=== PATIENT | female | born 1960 | race Caucasian/White ===

== ENCOUNTER 2020-09-27 09:30 | Outpatient (CLI) | payer BC, SELFPAY ==
--- NOTE | 2020-09-27 09:37 | MM_ITS ---
WS: [id number] Bilateral screening digital mammogram, 09/27/2020 Clinical Data: SCREENING Comparison: 02/08/2017, 02/04/2017, 08/02/2005. Findings: The breast parenchymal pattern shows extreme density. No spiculated masses or clustered calcification s are seen. There are no secondary signs of carcinoma. There are lymph nodes in both axilla. There is a mole marker on the left breast. MM/[id number] Impression: 1. Negative bilateral mammogram unchanged. 2. Recommend annual screening mammograms. BIRADS: 1-Negative FOLLOW UP: 1 Year Follow-up The CAD production checker was used.
== END 2020-09-27 09:31 | disposition home or self-care (01) ==
LOC: RADSHAW 09:33
PROVIDERS: Family Provider Nurse Practitioner Family; PCP Nurse Practitioner Family; Visit Provider Nurse Practitioner Family
DX: Z12.31 Encounter for screening mammogram for malignant neoplasm of breast (principal)
CPT/HCPCS: 77067